=== PATIENT | male | born 1995 | race American Indian/Alaskan Native ===

== ENCOUNTER 2020-01-14 16:49 | Emergency (ER) | payer OTHER ==
--- NOTE | 2020-01-14 17:15 | EDM.PDOC ---
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 there is any renal involvement or cause. He is supposed to be on lisinopril daily but has never filled the prescription. Blood pressure at the time of seen in the ED was 188/115. I will keep an eye on this and see if it deserves treatment. - Re-Assessments/Exams Free Text/Narrative Re-Assessment/Exam: 01/14/20 18:17 Patient states that he is feeling improved. He is less tremulous but alert and oriented even after 2 mg of Ativan. His nausea is easing up as well. Will allow him to have some ice chips at this time 01/14/20 18:24 White count is 9.90 with 76.1% neutrophils on the auto differential. Hemoglobin is 18.3 with hematocrit of 49.7. MCV is 90. Platelet count is 214,000. Slight manual slide review is pending PT is 11.4 with an INR of 1.05 PTT is 28. Sodium 138 with a potassium of 4.3 chloride 99 with a bicarb of 25 anion gap is elevated at 18.3. BUN is 8 with a creatinine of 1.2. GFR is greater than 60. Glucose 103. Calcium is 9.2. Magnesium is very low at 1.0 total bilirubin is 1.1. AST is 49 with an ALT of 77. Alk phosphatase is 96. Troponin I is less than 0.017. Total protein is 7.9 with albumin fraction of 4.1. Lipase is 140. He is obviously quite volume depleted. He is going to need some magnesium supplementation as well. I will start with 4 g IV at this time. She seems much more comfortable at this time. He is taking in some ice chips. 01/14/20 18:41 Ethanol level is 0.0. Serum ketones are 0.12 normal. He will receive a second liter of D5 LR soon as the first liter has been infused. This is to correct dehydration. I will discharge him after he is completed second liter of IV fluids and 4 gm of magnesium. Given Zofran 4 mg sublingually every 4 hours x8 tablets to prevent any further nausea vomiting. He expresses no desire to pursue alcohol treatment program at this time. I will give him a prescription for magnesium Slow-Mag-2 tablets twice daily for the next 5 days to correct his hypomagnesemia. Patient is at risk of significant alcohol withdrawal although he states he stopped drinking in the past with no problems. 01/14/20 18:50 I have discussed the case with Dr. Collins at change of shift. I have written up his discharge and he would be free to go after he completes second liter of IV fluids and his 4 g of magnesium IV. Prescription written for Zofran and magnesium supplementation. Departure - Departure Reason for Transfer *Q: Other Condition: Fair
[2020-01-14] MEDS ORDERED: LORazepam 2 MG/ML SDV IVPUSH ONE ×2 (17:21→20:20)
[2020-01-14] MEDS ORDERED: Metoclopramide 10 MG/2 ML SDV IVPUSH ONE (17:22)
[2020-01-14] MEDS ORDERED: Dextrose 5%-Lactated Ringers 1,000 ML IV SCH ×2 (17:30→18:45)
[2020-01-14] MEDS ORDERED: Thiamine 200 MG/2 ML MDV IVPUSH ONE (17:57)
--- NOTE | 2020-01-14 18:10 | CR ---
Chest: Portable view of the chest was obtained. Comparison: Prior chest x-ray of 03/16/10. Heart size and mediastinum are normal. Lungs are clear. Bony structures are unremarkable. Impression: 1. Nothing acute is seen on portable chest x-ray. Diagnostic code #1 This report was dictated in MDT
[2020-01-14] MEDS ORDERED: Magnesium Sulfate/Water 4 GM in Premix Bag 1 BAG IV ONE (18:26)
== END 2020-01-14 20:42 | disposition home or self-care (01) ==
LOC: JD.ED 16:49
DX: S05.11XA Contusion of eyeball and orbital tissues, right eye, initial encounter (principal); S80.12XA Contusion of left lower leg, initial encounter; K29.00 Acute gastritis without bleeding; F10.10 Alcohol abuse, uncomplicated; E83.42 Hypomagnesemia; I10 Essential (primary) hypertension; Z79.899 Other long term (current) drug therapy; X58.XXXA Exposure to other specified factors, initial encounter
CPT/HCPCS: 36415; 71045; 80053; 80306; 80307; 82009; 83690; 83735; 84484; 85025; 85610; 85730; 93005; 96361; 96365; 96366; 96375; 99285; J2060; J2765; J3411; J3475; J7121; 93010; 99284